=== PATIENT | male | born 1940 | race Caucasian/White ===

== ENCOUNTER → 2016-06-12 | Outpatient (CLI) | payer BC ==
--- NOTE | 2016-06-12 13:37 | KCIC ---
Five views lumbar spine Indication: Reason For Study Reason: LOW BACK PAIN 3-4 WEEKS / Spl. Instructions: / History: FINDINGS There is retrolisthesis of L5 on S1 with moderate disc height loss. There is mild disc height loss at L4-L5. No compression fracture or deformity no evidence for pars defects. Iliac stents are in place. SI joints are open and corticated. Impression: - Negative for compression fracture. - Moderate degenerative disc disease at L5-S1 with retrolisthesis. - Mild degenerative disc height loss at L4-L5 Electronically signed by: Dilip Lafleur (Jun 12, 2016 13:36:22)
== END | disposition home or self-care (01) ==
LOC: KCIC 12:31
PROVIDERS: ATTEND Family Medicine
DX: M51.37 Other intervertebral disc degeneration, lumbosacral region (principal); M51.36 Other intervertebral disc degeneration, lumbar region; M54.5 Low back pain
CPT/HCPCS: 72110

== ENCOUNTER → 2016-08-29 | Outpatient (CLI) | payer BC ==
--- NOTE | 2016-08-29 17:00 | KCIC ---
CHEST PA LATERAL History: Nonproductive cough x3 weeks. Comparison: Two-view chest April 30, 2014. Findings: Stable median sternotomy wires and changes of CABG. Atherosclerotic aortic arch. Cardiac size normal. Pulmonary vasculature is normal. Minimal scarring in the lung bases. The lungs are otherwise clear. No pleural effusion or pneumothorax is seen. There is no acute bone abnormality. IMPRESSION: No acute cardiopulmonary process. Electronically signed by: Artemio Khalil MD (08/29/2016 4:57 PM)
== END | disposition home or self-care (01) ==
LOC: KCIC 15:43
PROVIDERS: ATTEND Family Medicine
DX: R05 Cough (principal)
CPT/HCPCS: 71020

== ENCOUNTER → 2017-06-05 | Outpatient (CLI) | payer BC | END | disposition home or self-care (01) | LOC: KCIC MRI 11:25 | DX: S33.39XA Dislocation of other parts of lumbar spine and pelvis, initial encounter (principal); M48.061 Spinal stenosis, lumbar region without neurogenic claudication; M25.78 Osteophyte, vertebrae; X58.XXXA Exposure to other specified factors, initial encounter; Y93.89 Activity, other specified; Y92.89 Other specified places as the place of occurrence of the external cause; Y99.8 Other external cause status | CPT/HCPCS: 72148 ==

== ENCOUNTER → 2017-06-24 | Outpatient (CLI) | payer BC | END | disposition home or self-care (01) | LOC: PNCL 08:55 | DX: M13.88 Other specified arthritis, other site (principal); I25.10 Atherosclerotic heart disease of native coronary artery without angina pectoris; M79.605 Pain in left leg; I11.0 Hypertensive heart disease with heart failure; E11.9 Type 2 diabetes mellitus without complications; M51.37 Other intervertebral disc degeneration, lumbosacral region; Z95.1 Presence of aortocoronary bypass graft | CPT/HCPCS: G0463 ==